=== PATIENT | male | born 1980 | race Caucasian/White ===

== ENCOUNTER 2023-12-17 03:52 | Emergency (ER) | payer BC, MEDICAID ==
[~2023-12-17] VITALS: Ht 188 cm; Wt 94.6 kg
[2023-12-17 04:39] LABS: Basophils # (auto) 0.1 10 ^3/uL (0-0.2); Eosinophils # (auto) 0.2 10 ^3/uL (0-0.8); Lymphocytes # (auto) 1.9 10 ^3/uL (0.4-5.4); Monocytes # (auto) 1.2 10 ^3/uL (0-1.3); White Blood Cell 10.5 10^3/uL (4.4-10.8)
[2023-12-17 04:40] LABS: Eosinophils % (auto) 1.8 % (0.0-7.0); Hematocrit 51.2 % (41.0-53.0); Hemoglobin 18.8 g/dL (13.5-17.5); Lymphocytes % (auto) 18.3 % (10.0-50.0); Mean Corpuscular Hemoglobin 33.6 pg (28.0-32.0); Mean Corpuscular Volume 91.8 fL (80.0-100.0); Monocytes % (auto) 11.4 % (0.0-12.0); Neutrophils # (auto) 7.1 10 ^3/uL (1.6-8.6); Neutrophils % (auto) 67.5 % (37.0-80.0); Nucleated Red Blood Cells % 0.2 %; Red Blood Cells 5.58 10^6/uL (4.5-5.90); Red Cell Distribution Width 13.5 % (11.8-14.3)
[2023-12-17 04:47] LABS: Mean Corpuscular Hgb Conc. 36.6 g/dL (32.0-36.0)
[2023-12-17 04:55] LABS: Alanine Aminotransferase 26 U/L (7-40); Alkaline Phosphatase 76 U/L (46-116); Anion Gap 6 (5-15); Aspartate Aminotransferase 30 U/L (13-40); BUN/Creatinine Ratio 7.1 (10.0-20.0); Bilirubin, Total 0.5 mg/dL (0.2-1.0); Blood Urea Nitrogen 6 mg/dL (9-23); Calcium 9.4 mg/dL (8.7-10.4); Carbon Dioxide 25 mmol/L (20-30); Chloride 106 mmol/L (98-107); Glucose 110 mg/dL (74-106); Potassium 3.3 mmol/L (3.5-5.1); Sodium 137 mmol/L (136-145); Total Protein 7.1 g/dL (5.7-8.2)
[2023-12-17 05:07] LABS: Albumin 4.5 g/dL (3.2-4.8)
[2023-12-17 06:00] VITALS: PULSE 84; RESP 20; O2SAT 96
[2023-12-17] MEDS: SODIUM CHLORIDE 0.9% 1,000 ML IV ONE (06:00)
[2023-12-17] MEDS: PANTOPRAZOLE 40 MG/10 ML VIAL INJ IV ONE (06:21)
[2023-12-17] MEDS: ONDANSETRON HCL 4 MG/2 ML VIAL IV ONE (06:22)
[2023-12-17] MEDS ORDERED: IOHEXOL 300 MG/ML 100ML BOTTLE IJ ONE (07:03)
[2023-12-17 07:29] VITALS: PULSE 59; RESP 18; O2SAT 96
[2023-12-17] MEDS ORDERED: CIPR-173 PO (07:59)
[2023-12-17] MEDS ORDERED: METR-344 PO (07:59)
[2023-12-17 08:09] VITALS: BP 109/60; PULSE 66; RESP 18; TEMP 98; O2SAT 98
== END 2023-12-17 08:10 | disposition home or self-care (01) ==
LOC: ER 03:52
DX: K57.92 Diverticulitis of intestine, part unspecified, without perforation or abscess without bleeding (principal); K81.9 Cholecystitis, unspecified; N28.1 Cyst of kidney, acquired
CPT/HCPCS: 36415; 74177; 80053; 85025; 96361; 96374; 96375; 99285; J2405; J2470; J7030; Q9967

== ENCOUNTER 2023-12-25 16:09 | Emergency (ER) | payer BC, MEDICAID ==
[~2023-12-25] VITALS: Ht 195.6 cm; Wt 89.4 kg
[~2023-12-25 16:09] MED LIST: CIPR-173 PO; METR-344 PO
[2023-12-25 18:25] VITALS: PULSE 81; O2SAT 95
[2023-12-25] MEDS ORDERED: IBUP-1455 PO (18:56)
[2023-12-25] MEDS: KETOROLAC TROMETH 30 MG/ML 1ML VIAL IM ONE (19:13)
[2023-12-25 19:29] VITALS: BP 116/65; PULSE 81; RESP 18; TEMP 97.4; O2SAT 95
== END 2023-12-25 19:31 | disposition home or self-care (01) ==
LOC: ER 16:09
DX: S20.212A Contusion of left front wall of thorax, initial encounter (principal); F20.9 Schizophrenia, unspecified; Z79.899 Other long term (current) drug therapy; X58.XXXA Exposure to other specified factors, initial encounter; Y93.89 Activity, other specified; Y92.89 Other specified places as the place of occurrence of the external cause; Y99.8 Other external cause status
CPT/HCPCS: 71101; 96372; 99283; J1885